=== PATIENT | male | born 1955 | race Caucasian/White ===

== ENCOUNTER 2017-11-16 05:45 | Emergency (ER) | payer OTHER, BC ==
[~2017-11-16] VITALS: Ht 180.3 cm; Wt 102.7 kg
[~2017-11-16 05:45] MED LIST: ADVIL200 MG PO; APIDRA100 U/ML SC; ASPIRIN 32325 MG/TAB PO; ASPIRIN 81M81 MG/TA2 PO; BACTRIM DS 8001 TAB PO; CARTIA XT180 MG PO; COZAAR 50MG50 MG/TAB PO; DYNACIN100 M1 PO; FERROUS SU325 MG/TAB PO; HCTZ 25MG TAB25 MG PO; LANTUS SOLOS100 U/ML SC; LANTUS SOLOS100 U/ML SQ; LEVEMIR100 U/ML SC; MINOCIN 50M50 MG/CAP PO; NORCO 325 MG-51 TAB PO; NORCO 325 MG-7.1 TAB PO; NOVOLIN 70/30 710 ML SC; NOVOLIN 70/30 710 ML SQ; NOVOLOG 100U100 U/M1; NOVOLOG 100U100 U/M1 SQ; NOVOLOG 100U100 U/ML SQ; NOVOLOG FLEX100 U/ML SC; NOVOLOGMIX70/30 SQ; PHENERGAN W/CO120 M1 PO; PLAVIX 75MG TAB75 MG PO; PRAVACHOL 40MG40 MG PO; SENOKOT S 50 MG1 TAB PO; VITAMIN B-1000 MCG/T PO; ZITHROMAX 250M250 MG PO
[2017-11-16 05:49] VITALS: BP 140/67; TEMP 97.5
[2017-11-16] MEDS ORDERED: NORCO 325 MG-51 TAB PO (07:24)
[2017-11-16] MEDS ORDERED: CLEOCIN HCL300 MG PO (07:36)
[2017-11-16 07:55] VITALS: PULSE 74
== END 2017-11-16 07:56 | disposition home or self-care (01) ==
LOC: COL.ER 05:45
DX: S42.214A Unspecified nondisplaced fracture of surgical neck of right humerus, initial encounter for closed fracture (principal); S01.112A Laceration without foreign body of left eyelid and periocular area, initial encounter; I10 Essential (primary) hypertension; E11.9 Type 2 diabetes mellitus without complications; E78.5 Hyperlipidemia, unspecified; Z79.4 Long term (current) use of insulin; Z79.82 Long term (current) use of aspirin; W01.0XXA Fall on same level from slipping, tripping and stumbling without subsequent striking against object, initial encounter; Y92.89 Other specified places as the place of occurrence of the external cause; Y99.0 Civilian activity done for income or pay